=== PATIENT | female | born 1990 | race Caucasian/White ===

== ENCOUNTER 2021-03-26 02:47 | Inpatient (IN) | payer BC ==
[2021-03-26] MEDS ORDERED: Sodium Chloride 0.9% 10 ML Syringe FLUSH PRN (04:37)
--- NOTE | 2021-03-26 04:40 | PCM.LDHP ---
L&D History of Present Illness - General Date of Service: 03/26/21 Admit Problem/Dx: Patient Status Order with Admit Dx/Problem 03/26/21 03:02 Patient Status [ADT] Routine Admission Diagnosis/Problem Admission Diagnosis/Problem Source of Information: Patient History Limitations: Reports: No Limitations - History of Present Illness Introduction:: Patient is a 31 y/o G P1001 at 39 5/7 wk who presented early this AM in labor. Contractions started around 2200. Presented to L&D around 0300. Just with SROM. Doing well. 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: : 2 Para: 1 LMP (Approximate): Psychiatric History: Reports: Anxiety Social & Family History - Tobacco Use Tobacco Use Status *Q: Former Tobacco User - Caffeine Use Caffeine Use: Reports: Coffee - Alcohol Use Alcohol Use History: No - Recreational Drug Use Recreational Drug Use: No H&P Review of Systems - Review of Systems: Review Of Systems: See Below General: Reports: No Symptoms Pulmonary: Reports: No Symptoms Cardiovascular: Reports: No Symptoms Gastrointestinal: Reports: No Symptoms Genitourinary: Reports: No Symptoms Musculoskeletal: Reports: No Symptoms Psychiatric: Reports: No Symptoms Neurological: Reports: No Symptoms L&D Exam - Exam Exam: See Below - OB Specific Contraction Intensity: Moderate to Strong Movement: Active Heart Tones: Present Heart Tones per Min: 145 Heart Rate (FHR) Variability: Moderate (6-25 bpm) Presentation: Vertex - Mckeon Score Mckeon Score Cervix Position: Midposition Mckeon Score Consistency: Soft Mckeon Score Effacement: >80% Mckeon Score Dilation: > 5 cm Mckeon Score 's Station: -1 ,0 Mckeon Score Total: 11 - Exam General: Alert, Oriented, Cooperative Lungs: Clear to Auscultation, Normal Respiratory Effort Cardiovascular: Regular Rate, Regular Rhythm GI/Abdominal Exam: Soft, Non-Tender Genitourinary: Normal external exam Extremities: Normal Inspection Skin: Warm, Dry, Intact - Problem List (1) 39 weeks gestation of SNOMED Code(s): 45996896 ICD Code: Z3A.39 - 39 WEEKS GESTATION OF Status: Acute Current Visit: Yes (2) Normal labor SNOMED Code(s): 79446519 ICD Code: O80 - ENCOUNTER FOR FULL-TERM UNCOMPLICATED DELIVERY; Z37.9 - OUTCOME OF DELIVERY, UNSPECIFIED Status: Acute Current Visit: Yes Problem List Initiated/Reviewed/Updated: Yes Orders Last 24hrs: Active Orders 24 hr Category Date Time Status Patient Status [ADT] Routine ADT 03/26/21 03:02 Active Activity as Tolerated [RC] PFP Care 03/26/21 04:37 Active Communication Order [RC] ASDIRECTED Care 03/26/21 04:37 Active Heart Tones [RC] ASDIRECTED Care 03/26/21 04:38 Active Non Stress Test [RC] PER UNIT ROUTINE Care 03/26/21 03:02 Active Notify Provider [RC] PRN Care 03/26/21 04:37 Active Peripheral IV Care [RC] . DIRECTED Care 03/26/21 04:38 Active Vital Signs [RC] PER UNIT ROUTINE Care 03/26/21 03:02 Active Vital Signs [RC] PER UNIT ROUTINE Care 03/26/21 04:37 Active CORONAVIRUS COVID-19 OWEN [MOLEC] Stat Lab 03/26/21 04:38 Ordered Lactated Ringers [Ringers, Lactated] 1,000 ml Med 03/26/21 04:45 Ordered IV ASDIRECTED Oxytocin/Lactated Ringers [Pitocin in LR 10 Units/1,000 Med 03/26/21 04:45 Ordered ML] 10 unit in 1,000 ml IV .CONTINUOUS Sodium Chloride 0.9% [Saline Flush] Med 03/26/21 04:37 Ordered 10 ml FLUSH ASDIRECTED PRN Electronic Heart Tones Ext w TOCO [WOMSER] Oth 03/26/21 04:37 Ordered Routine Electronic Heart Tones Internal [WOMSER] Per Unit Oth 03/26/21 04:37 Ordered Routine Peripheral IV Insertion Adult [OM.PC] Routine Oth 03/26/21 04:37 Ordered Resuscitation Status Routine Resus Stat 03/26/21 03:02 Ordered Medication Orders Lactated Ringer's (Ringers, Lactated) 1,000 mls @ 100 mls/hr IV ASDIRECTED DEVYN Assessment/Plan Comment:: * Declines labs/IV * COVID testing done * GBS negative, no need for antibiotics * Pain management per patient preference * Anticipate * Pt RH negative, but FOB also with Rh negative blood type. * Rubella non immune.
[2021-03-26] MEDS ORDERED: Lactated Ringers 1,000 ML IV SCH (04:45)
[2021-03-26] MEDS ORDERED: Oxytocin/Lactated Ringers 10 UNIT/1,000 ML BAG IV SCH (04:45)
--- NOTE | 2021-03-26 06:17 | PCM.DEL ---
L & D Note - General Info Date of Service: 03/26/21 - Delivery Note Labor: Spontaneous Delivery Outcome: Livebirth Delivery Method: Spontaneous Vaginal Delivery-Single Delivery Mode: Spontaneous Presentation: Left Occiput Anterior (CHENCHO) Nuchal Cord: Present, Reduced Anesthesia Type: None Amniotic Fluid Description: Clear Episiotomy Type: None Laceration: None Placenta: Intact, Spontaneous, Abnormal Estimated Blood Loss: 100 Resuscitation Needed: Yes [place]: Bulb Syringe, Stimulated, Warmed, [place] Used Delivery Comments (Free Text/Narrative):: Patient found to be complete and began pushing. With maternal pushing effort head delivered from CHENCHO presentation. Nuchal cord present and reduced. W ith gentle downward traction the shoulders and body delivered. placed on maternal abdomen. Cord clamped and cut. Cord blood obtained. Placenta allowed time to separate and expelled intact. Inspection of perineum showed no lacerations - General Info Date of Service: 03/26/21 - Problem List & Annotations (1) 39 weeks gestation of SNOMED Code(s): 92366351 Code(s): Z3A.39 - 39 WEEKS GESTATION OF Status: Acute Current Visit: Yes (2) Normal labor SNOMED Code(s): 36610760 Code(s): O80 - ENCOUNTER FOR FULL-TERM UNCOMPLICATED DELIVERY; Z37.9 - OUTCOME OF DELIVERY, UNSPECIFIED Status: Acute Current Visit: Yes (3) Normal vaginal delivery SNOMED Code(s): 40105620, 670953415 Code(s): O80 - ENCOUNTER FOR FULL-TERM UNCOMPLICATED DELIVERY Status: Acute Current Visit: No - Problem List Review Problem List Initiated/Reviewed/Updated: Yes - My Orders Last 24 Hours: My Active Orders 03/26/21 03:02 Patient Status [ADT] Routine Vital Signs [RC] PER UNIT ROUTINE Resuscitation Status Routine 03/26/21 04:37 Activity as Tolerated [RC] PFP Communication Order [RC] ASDIRECTED Notify Provider [RC] PRN Vital Signs [RC] PER UNIT ROUTINE Sodium Chloride 0.9% [Saline Flush] 10 ml FLUSH ASDIRECTED PRN Electronic Heart Tones Ext w TOCO [WOMSER] Routine Electronic Heart Tones Internal [WOMSER] Per Unit Routine Peripheral IV Insertion Adult [OM.PC] Routine 03/26/21 04:38 Heart Tones [RC] ASDIRECTED Peripheral IV Care [RC] . DIRECTED 03/26/21 04:45 Lactated Ringers [Ringers, Lactated] 1,000 ml IV ASDIRECTED Oxytocin/Lactated Ringers [Pitocin in LR 10 Units/1,000 ML] 10 unit in 1,000 ml IV CONTINUOUS 03/26/21 06:15 Patient Status Manage Transfer [TRANSFER] Routine CBC W/O DIFF,HEMOGRAM [HEME] Routine RPR (SYPHILIS SERO) W/ RFLX [REF] Routine TYPE AND SCREEN [BBK] Routine - Assessment Assessment:: * Routine cares * Breast feeding * Discharge in 1-2 days - Plan Plan:: * Declines labs/IV * COVID testing done * GBS negative, no need for antibiotics * Pain management per patient preference * Anticipate * Pt RH negative, but FOB also with Rh negative blood type. * Rubella non immune.
[2021-03-26] MEDS ORDERED: Oxytocin 10 Units/1 ML SDV ONE (06:20)
[2021-03-26] MEDS ORDERED: FLU Vacc QS2021-22 36MOS UP/PF 60 MCG/0.5 ML Syringe IM ONE (07:00)
[2021-03-26] MEDS ORDERED: Docusate Sodium 100 MG Cap PO PRN (07:04)
[2021-03-26] MEDS ORDERED: Witch Hazel Medicated Pads 40/Jar TOP PRN (07:04)
[2021-03-26] MEDS ORDERED: Acetaminophen 325 MG Tab PO PRN (07:04)
[2021-03-26] MEDS ORDERED: Benzocaine/Menthol 20%-0.5% Spray 78 GM Cannister TOP PRN (07:04)
[2021-03-26] MEDS: Ibuprofen 600 MG Tab PO PRN ×2 (08:33→20:01)
[2021-03-26] MEDS ORDERED: Oxytocin 10 Units/1 ML SDV IM ONE (08:51)
[2021-03-27] MEDS: Ibuprofen 600 MG Tab PO PRN (04:04)
--- NOTE | 2021-03-27 06:41 | PCM.PNPP ---
- General Info Date of Service: 03/27/21 Functional Status: Reports: Pain Controlled, Tolerating Diet, Ambulating, Urinating - Review of Systems General: Reports: No Symptoms Pulmonary: Reports: No Symptoms Cardiovascular: Reports: No Symptoms Gastrointestinal: Reports: No Symptoms Genitourinary: Reports: No Symptoms Musculoskeletal: Reports: No Symptoms - General Info Date of Service: 03/27/21 - Patient Data Vital Signs - Most Recent: Last Vital Signs Temp 36.8 C 03/27/21 03:47 Pulse 71 03/27/21 03:47 Resp 12 03/27/21 03:47 BP 111/57 L 03/27/21 03:47 Pulse Ox 98 03/27/21 03:47 Weight - Most Recent: 74.389 kg I&O - Last 24 Hours: Intake & Output 03/26/21 03/26/21 03/27/21 14:59 22:59 06:59 Intake Total 535 Balance 535 Lab Results - Last 24 Hours: Laboratory Results - last 24 hr 03/26/21 03/26/21 03/26/21 Range/Units 06:24 06:24 06:24 WBC 16.03 H (3.98-10.04) K/mm3 RBC 4.12 (3.98-5.22) M/mm3 Hgb 12.7 (11.2-15.7) gm/dl Hct 37.8 (34.1-44.9) % MCV 91.7 (79.4-94.8) fl MCH 30.8 (25.6-32.2) pg MCHC 33.6 (32.2-35.5) g/dl RDW Std Deviation 44.5 (36.4-46.3) fL Plt Count 132 L (182-369) K/mm3 MPV 11.1 (9.4-12.3) fl RPR Non-reactive (NONREACTIVE) Blood Type B NEGATIVE Gel Antibody Screen Negative Med Orders - Current: Current Medications Acetaminophen (Acetaminophen 325 Mg Tab) 650 mg PO Q4H PRN PRN Reason: mild pain or fever Last Admin: 03/26/21 12:15 Dose: 650 mg Documented by: Benzocaine/Menthol (Benzocaine/Menthol 20%-0.5% [place] 78 Gm Cannister) 0 gm TOP ASDIRECTED PRN PRN Reason: Perineal Comfort Measure Last Admin: 03/26/21 08:35 Dose: 1 applic Documented by: Docusate Sodium (Docusate Sodium 100 Mg Cap) 100 mg PO BID PRN PRN Reason: Constipation Ibuprofen (Ibuprofen 600 Mg Tab) 600 mg PO Q6H PRN PRN Reason: Mild pain or fever Last Admin: 03/27/21 04:04 Dose: 600 mg Documented by: Gabe Gibson (Gabe Gibson Medicated Pads 40/Jar) 1 pad TOP ASDIRECTED PRN PRN Reason: Perineal Comfort Measure Last Admin: 03/26/21 08:34 Dose: 1 applic Documented by: Discontinued Medications Lactated Ringer's (Ringers, Lactated) 1,000 mls @ 100 mls/hr IV ASDIRECTED DEVYN Oxytocin/Lactated Ringer's (Pitocin In Lr 10 Units/1,000 Ml) 10 unit in 1,000 mls @ 500 mls/hr IV CONTINUOUS DEVYN Influenza Virus Vaccine (Flu Vacc [id number] 36mos Up/Pf 60 Mcg/0.5 Ml Syringe) 60 mcg IM .ONCE ONE Stop: 03/26/21 07:01 Last Admin: 03/26/21 19:32 Dose: Not Given Documented by: Oxytocin (Oxytocin 10 Units/1 Ml Sdv) Confirm Administered Dose 10 unit .ROUTE .STK-MED ONE Stop: 03/26/21 06:21 Last Admin: 03/26/21 15:36 Dose: Not Given Documented by: Oxytocin (Oxytocin 10 Units/1 Ml Sdv) 10 unit IM ONETIME ONE Stop: 03/26/21 08:52 Last Admin: 03/26/21 06:20 Dose: 10 unit Documented by: Sodium Chloride (Sodium Chloride 0.9% 10 Ml Syringe) 10 ml FLUSH ASDIRECTED PRN PRN Reason: Keep Vein Open - Interaction Infant Disposition, : [place] in Room with Family Infant Interaction: Holding Infant Feeding: Breastfed ; Nursed Well Support Person: - Recovery Exam Fundal Tone: Firm Fundal Level: 3 Fingerbreadths Below Umbilicus Fundal Placement: Midline Lochia Amount: Scant Lochia Color: Rubra/Red Perineum Description: Intact, Minimal Bruising/Swelling Bladder Status: Voiding Urinary Elimination: Voided - Exam General: Alert, Oriented, Cooperative GI/Abdominal Exam: Soft, Non-Tender - Problem List & Annotations (1) 39 weeks gestation of SNOMED Code(s): 47873136 Code(s): Z3A.39 - 39 WEEKS GESTATION OF Status: Acute Current Visit: Yes (2) Normal labor SNOMED Code(s): 45773786 Code(s): O80 - ENCOUNTER FOR FULL-TERM UNCOMPLICATED DELIVERY; Z37.9 - OUTCOME OF DELIVERY, UNSPECIFIED Status: Acute Current Visit: Yes (3) Normal vaginal delivery SNOMED Code(s): 26028879, 185349239 Code(s): O80 - ENCOUNTER FOR FULL-TERM UNCOMPLICATED DELIVERY Status: Acute Current Visit: No - Problem List Review Problem List Initiated/Reviewed/Updated: Yes - My Orders Last 24 Hours: My Active Orders 03/26/21 06:49 Vaccine to be Administered/Admin Charge [RC] ASDIRECTED 03/26/21 Breakfast Regular Diet [DIET] 03/26/21 07:04 Acetaminophen [TylenoL] 650 mg PO Q4H PRN Benzocaine/Menthol [Dermoplast Pain Relief 20%-0.5% [place]] See Dose Instructions TOP ASDIRECTED PRN Docusate Sodium [Colace] 100 mg PO BID PRN Ibuprofen [Motrin] 600 mg PO Q6H PRN witch [place]umar [Tucks] 1 pad TOP ASDIRECTED PRN Heat Therapy [OM.PC] PRN 03/26/21 07:04 Activity as Tolerated [RC] PER UNIT ROUTINE Vital Signs [RC] 03,09,15,21 Assess Lochia [WOMSER] Per Unit Routine Assess Uterine Involution [WOMSER] Per Unit Routine Breast Pump [WOMSER] Per Unit Routine Ice Therapy [OM.PC] Per Unit Routine Medication Administration Instruction [OM.PC] Routine Perineal Care [OM.PC] Per Unit Routine Sitz Bath [OM.PC] Per Unit Routine 03/27/21 06:39 Ready for Discharge [RC] PER UNIT ROUTINE 03/27/21 07:04 Heat Therapy [OM.PC] PRN - Assessment Assessment:: PPD#1 - Plan Plan:: * Routine cares * Breast feeding * Discharge today
--- NOTE | 2021-03-27 06:43 | PCM.DCSUM1 ---
Discharge Summary - Discharge Data Discharge Date: 03/27/21 Discharge Disposition: Home, Self-Care 01 Condition: Good - Referral to Home Health Primary Care Physician: Valeria Cox MD - Discharge Diagnosis/Problem(s) (1) 39 weeks gestation of SNOMED Code(s): 38288758 ICD Code: Z3A.39 - 39 WEEKS GESTATION OF Status: Acute Current Visit: Yes (2) Normal labor SNOMED Code(s): 33850652 ICD Code: O80 - ENCOUNTER FOR FULL-TERM UNCOMPLICATED DELIVERY; Z37.9 - OUTCOME OF DELIVERY, UNSPECIFIED Status: Acute Current Visit: Yes (3) Normal vaginal delivery SNOMED Code(s): 08875705, 112972653 ICD Code: O80 - ENCOUNTER FOR FULL-TERM UNCOMPLICATED DELIVERY Status: Acute Current Visit: No - Patient Summary/Data Complications: None Consults: None Recommended Follow-up Testing/Procedures: Follow up in 3 weeks Hospital Course: 31 y/o at 39 5/7 wks who presented in labor. Progressed well. Underwent an uncomplicated . See delivery note. without complications. Discharged home on PPD#1 - Patient Instructions Diet: Regular Diet as Tolerated Activity: As Tolerated Activity, Other: Pelvic rest for 6 weeks Driving: May Drive Today Showering/Bathing: May Shower Showering/Bathing, Other: May Bathe Notify Provider of: Fever, Increased Pain, Swelling and Redness, Drainage, Nausea and/or Vomiting - Discharge Plan *PRESCRIPTION DRUG MONITORING PROGRAM REVIEWED*: No *COPY OF PRESCRIPTION DRUG MONITORING REPORT IN PATIENT DALIA: No Home Medications: Home Meds Vit #76/Iron,Carb/Fa [Pnv 29-1 Tablet] 2 tab PO DAILY 01/03/19 [History] Docusate Sodium [Colace] 100 mg PO BID PRN cap 03/26/21 [Rx] Ibuprofen [Motrin] 600 mg PO Q6H PRN tablet 03/26/21 [Rx] Referrals: Valeria Cox MD [Primary Care Provider] - (3 weeks for check ) - Discharge Summary/Plan Comment DC Time >30 min.: No Total # of Minutes for Discharge Time: 15 - Patient Data Vitals - Most Recent: Last Vital Signs Temp 36.8 C 03/27/21 03:47 Pulse 71 03/27/21 03:47 Resp 12 03/27/21 03:47 BP 111/57 L 03/27/21 03:47 Pulse Ox 98 03/27/21 03:47 Weight - Most Recent: 74.389 kg I&O - Last 24 hours: Intake & Output 03/26/21 03/26/21 03/27/21 14:59 22:59 06:59 Intake Total 535 Balance 535 Lab Results - Last 24 hrs: Laboratory Results - last 24 hr 03/26/21 03/26/21 Range/Units 06:24 06:24 RPR Non-reactive (NONREACTIVE) Blood Type B NEGATIVE Gel Antibody Screen Negative Med Orders - Current: Current Medications Acetaminophen (Acetaminophen 325 Mg Tab) 650 mg PO Q4H PRN PRN Reason: mild pain or fever Last Admin: 03/26/21 12:15 Dose: 650 mg Documented by: Benzocaine/Menthol (Benzocaine/Menthol 20%-0.5% [place] 78 Gm Cannister) 0 gm TOP ASDIRECTED PRN PRN Reason: Perineal Comfort Measure Last Admin: 03/26/21 08:35 Dose: 1 applic Documented by: Docusate Sodium (Docusate Sodium 100 Mg Cap) 100 mg PO BID PRN PRN Reason: Constipation Ibuprofen (Ibuprofen 600 Mg Tab) 600 mg PO Q6H PRN PRN Reason: Mild pain or fever Last Admin: 03/27/21 04:04 Dose: 600 mg Documented by: Gabe Gibson (Witch [place] Medicated Pads 40/Jar) 1 pad TOP ASDIRECTED PRN PRN Reason: Perineal Comfort Measure Last Admin: 03/26/21 08:34 Dose: 1 applic Documented by: Discontinued Medications Lactated Ringer's (Ringers, Lactated) 1,000 mls @ 100 mls/hr IV ASDIRECTED DEVYN Oxytocin/Lactated Ringer's (Pitocin In Lr 10 Units/1,000 Ml) 10 unit in 1,000 mls @ 500 mls/hr IV CONTINUOUS DEVYN Influenza Virus Vaccine (Flu Vacc [id number] 36mos Up/Pf 60 Mcg/0.5 Ml Syringe) 60 mcg IM .ONCE ONE Stop: 03/26/21 07:01 Last Admin: 03/26/21 19:32 Dose: Not Given Documented by: Oxytocin (Oxytocin 10 Units/1 Ml Sdv) Confirm Administered Dose 10 unit .ROUTE .STK-MED ONE Stop: 03/26/21 06:21 Last Admin: 03/26/21 15:36 Dose: Not Given Documented by: Oxytocin (Oxytocin 10 Units/1 Ml Sdv) 10 unit IM ONETIME ONE Stop: 03/26/21 08:52 Last Admin: 03/26/21 06:20 Dose: 10 unit Documented by: Sodium Chloride (Sodium Chloride 0.9% 10 Ml Syringe) 10 ml FLUSH ASDIRECTED PRN PRN Reason: Keep Vein Open
== END 2021-03-27 09:35 | disposition home or self-care (01) | DRG 560 ==
LOC: JD.OBCHECK 02:47 → JD.OB 02:56 → JD.OBCHECK 03:15 → JD.OB 03:15 → OBSVTOIN 06:05 → JD.OB 06:06
PROVIDERS: ADMIT Obstetrics & Gynecology; ATTEND Obstetrics & Gynecology
PROC: 10E0XZZ Delivery of Products of Conception, External Approach (ICD-10-PCS; principal; 2021-03-26)
DX: O69.81X0 Labor and delivery complicated by cord around neck, without compression, not applicable or unspecified (principal); Z20.822 Contact with and (suspected) exposure to COVID-19; Z37.0 Single live birth; Z3A.39 39 weeks gestation of pregnancy; Z87.891 Personal history of nicotine dependence
CPT/HCPCS: 36415; 59025; 59409; 85027; 86592; 86850; 86900; 86901; A9270-GY; J2590; U0002